=== PATIENT | female | born 1980 | race Caucasian/White ===

== ENCOUNTER → 2019-11-14 | Outpatient (CLI) | payer OTHER ==
--- NOTE | 2019-11-14 08:08 | RAD ---
Neck soft tissue ultrasound HISTORY: Thyromegaly. FINDINGS: Right thyroid lobe measures 4.5 x 1.8 x 1.3 cm. Left thyroid lobe measures 4.6 x 1.9 x 1.0 cm. Isthmus thickness 0.3 cm. There is diffuse heterogeneous echotexture throughout the thyroid gland. There is no discrete focal nodule. There are no calcifications. No parathyroid nodules or adenopathy documented. IMPRESSION: No thyroid nodule evident. There is diffuse heterogeneous echotexture of the thyroid parenchyma may be indicative of chronic thyroiditis. Electronically signed by: Lux Wall MD (11/14/2019 8:05 AM) [id number]
== END | disposition home or self-care (01) ==
LOC: US 07:35
PROVIDERS: ATTEND Family Medicine
DX: E01.0 Iodine-deficiency related diffuse (endemic) goiter (principal)
CPT/HCPCS: 76536